=== PATIENT | female | born 2000 | race Caucasian/White ===

== ENCOUNTER 2024-11-10 20:38 | Emergency (ER) | payer BC, SELFPAY ==
[2024-11-10 20:56] VITALS: BP 116/74; BP 134/83; PULSE 120; PULSE 86; RESP 16; TEMP 36.8; O2SAT 100; BMI 23.8
--- NOTE | 2024-11-10 21:54 | ED.ALLEREA ---
HPI - Allergic Reaction General Chief complaint: Allergic Reaction Stated complaint: allergic reaction Time Seen by Provider: 11/10/24 21:47 Source: patient, EMS and old records reviewed Mode of arrival: EMS Limitations: no limitations History of Present Illness ED Provider: HAI ALMONTE narrative: 24 yo female with hx of severe allergies and anaphylaxis was out to dinner and states the food tasted too good not to have butter - she started to have throat closing and hives. She gave herself epi pen at 750am and was also given 50mg benadryl by EMS. This was 2 hours + ago and now she has no symptoms and feels fine. They are eager to go home. Plan is to Rx epi on way home to [place]. MD complaint: allergic reaction and hives Onset (ago): hour(s) (750pm ) Exposure: food Symptoms: rash, itching, difficulty swallowing, difficulty breathing and hoarseness Severity: severe Treatment prior to arrival: benadryl and epinephrine Previous Allergic Reaction History: prior ED visit(s) and anaphylaxis Related Data Previous Rx's ?Medication ?Instructions ?Recorded epinephrine 0.3 mg/0.3 mL 0.3 mg (0.3 mL) IM Q10M PRN 11/10/24 injection, auto-injector anaphylaxis #2 ea Allergies Allergy/AdvReac Type Severity Reaction Status Date / Time amoxicillin Allergy Severe Anaphylaxis Verified 11/10/24 20:59 lactase [From Dairy Aid] Allergy Severe Anaphylaxis Verified 11/10/24 20:59 fluticasone [From Flonase] Allergy Mild Rash Verified 11/10/24 20:59 Review of Systems Review of Systems: Constitutional : No Fever, No Chills ENT/Mouth : positive oral swelling, pos Hoarseness, No Swallowing Difficulty Eyes: No Eye Pain, No Swelling, No Redness Cardiovascular : No Chest Pain, No SOB Respiratory : No Cough, No Sputum, No Wheezing, No Smoke Exposure, No Dyspnea Gastrointestinal : No Nausea, No Vomiting, No Diarrhea, No abdominal Pain Genitourinary : No Dysuria, No Urinary Frequency, No Hematuria Musculoskeletal : No joint pain, No Myalgias, No Joint Swelling Skin : No Skin Lesions, positive rash Neuro : No Weakness, No Numbness, No Headache Psych : No Anxiety/Panic, No Depression Heme/Lymph: No Bruising, No Lymphadenopathy Endocrine : No Polyuria, No Polydipsia All other systems reviewed and are negative [facility] Past Medical History Attestation statement: The following information was validated with the patient. Source: old records reviewed Medical History Anaphylaxis Social History Social History (Updated 11/10/24 @ 23:25 by Amy Hernandez DO) Patient Tobacco Use Status: Never used Tobacco Physical Exam ED Vital Signs: Vital Signs - 24 hr 11/10/24 20:56 11/10/24 22:43 Temperature 98.3 F 98.3 F Pulse Rate 86 86 Respiratory Rate 16 16 Blood Pressure 134/83 134/83 Pulse Oximetry 100 100 Oxygen Delivery Method Room Air Room Air BMI result Body Mass Index 23.8 Appearance: Alert. Oriented X3. No acute distress. Eyes: Pupils equal, round and reactive to light. ENT: Pharynx normal. no swelling Neck: Normal inspection. Neck supple. CVS: Normal heart rate and rhythm. Pulses normal. Respiratory: No respiratory distress. Breath sounds normal. no stridor Abdomen: Soft and nontender. Skin: Skin warm and dry. Normal skin color. Normal skin turgor. no hives Extremities: No lower extremity edema. No calf ttp Neuro: Oriented X 3. No motor deficit. No sensory deficit. CN2-12 intact Medical Decision Making Medical Decision Making MDM Narrative: 24 yo female with PMH of anaphylaxis who is 2 hours out of allergy s/p benadryl and epi pen - she has no issues 2 hours after the fact will send home with family and DC with epi pen and refill - family and patient agreeable to plan Differential Diagnosis Differential Diagnoses: The differential diagnosis associated with the presentation includes anaphylaxis Admission/Observation Consideration of admission/observation: Escalation of care including admission/observation considered no recurrence in 2 hours stable for DC Independent Historian Clinical information obtained from an independent historian. History obtained from or confirmed by: Spouse, Parent and EMS Prescription Management I considered prescription management with: Other Discharge Plan Discharge Clinical Impression: Anaphylaxis Qualifiers: Encounter type: initial encounter Qualified Code(s): T78.2XXA - Anaphylactic shock, unspecified, initial encounter Patient Disposition: Home, Self-Care Instructions: General Allergic Reaction (ED) Additional Instructions: carry epi pens at all time call 911 for any return of symptoms rest and stay hydrated for the next couple of days Prescriptions: New epinephrine 0.3 mg/0.3 mL auto-injector 0.3 mg IM Q10M PRN (Reason: anaphylaxis) Qty: 2 2RF Rx Instructions: for 2 doses Stand Alone Forms: Work/School Release Interventions: ED Discharge Assessment Last Done: 11/10/24 22:43 Discharge Date/Time: 11/10/24 22:45 Print Language: Green[place]ic
[2024-11-10 22:43] VITALS: BP 134/83; PULSE 86; RESP 16; TEMP 36.8; O2SAT 100
== END 2024-11-10 22:45 | disposition home or self-care (01) ==
PROVIDERS: Emergency Provider Emergency Medicine
DX: T78.07XA Anaphylactic reaction due to milk and dairy products, initial encounter (principal); L50.9 Urticaria, unspecified; X58.XXXA Exposure to other specified factors, initial encounter
CPT/HCPCS: 99283; 99284